=== PATIENT | female | born 1945 | race Caucasian/White ===

== ENCOUNTER 2022-01-29 16:19 | Emergency (ER) | payer MEDICARE ==
[~2022-01-29] VITALS: Ht 149.9 cm; Wt 84.0 kg
[2022-01-29] VITALS (22 sets, daily range): BP systolic 64–121; BP diastolic 36–75
[2022-01-29 16:47] LABS: HEMATOCRIT 40.3 % (37.0-47.0); HEMOGLOBIN 12.9 g/dl (12.0-16.0); IMMATURE GRANULOCYTES 0.6 % (0.0-5.0); MEAN CELL VOLUME 92.4 fL CALC (80.0-100.0); MEAN CORPUSCULAR HGB 29.6 pG CALC (26.0-32.0); NEUT# 14.73 thou/uL (2.00-7.15); RED BLOOD COUNT 4.36 mill/uL (4.20-5.60); RED CELL DISTRI WIDTH 14.2 % (11.5-15.5)
[2022-01-29 17:00] LABS: ALBUMIN 3.5 g/dL (3.2-5.0); BILIRUBIN, TOTAL 0.3 mg/dL (0.0-1.4); CREATININE 2.3 mg/dL (0.5-1.0); MAGNESIUM 2.8 mg/dL (1.6-2.3); TOTAL PROTEIN 6.3 g/dL (6.3-8.2)
[2022-01-29 17:04] LABS: POTASSIUM 5.3 mmol/l (3.5-5.1)
== END 2022-01-29 18:43 | disposition home or self-care (01) ==
LOC: ED 16:19
PROVIDERS: Internal Medicine
DX: I48.91 Unspecified atrial fibrillation (principal); R79.89 Other specified abnormal findings of blood chemistry; I95.9 Hypotension, unspecified

== ENCOUNTER 2022-06-17 16:35 | Emergency (ER) | payer MEDICARE ==
[2022-06-17] VITALS (24 sets, daily range): BP systolic 105–194; BP diastolic 49–87
[~2022-06-17] VITALS: Ht 149.9 cm; Wt 82.2 kg
[2022-06-17 17:36] LABS: HEMATOCRIT 44.7 % (37.0-47.0); IMMATURE GRANULOCYTES 0.5 % (0.0-5.0); MEAN CELL VOLUME 90.1 fL CALC (80.0-100.0); MEAN CORPUSCULAR HGB 30.6 pG CALC (26.0-32.0); NEUT# 9.85 thou/uL (2.00-7.15); RED BLOOD COUNT 4.96 mill/uL (4.20-5.60); RED CELL DISTRI WIDTH 12.9 % (11.5-15.5)
[2022-06-17 17:40] LABS: HEMOGLOBIN 15.2 g/dl (12.0-16.0)
[2022-06-17 17:56] LABS: CREATININE 2.9 mg/dL (0.5-1.0)
[2022-06-17 18:08] LABS: URINE BILIRUBIN - DIPSTICK NEGATIVE (NEGATIVE); URINE BLOOD DIPSTICK SMALL (NEGATIVE); URINE COLOR YELLOW; URINE GLUCOSE - DIPSTICK NEGATIVE (NEGATIVE); URINE KETONE TRACE mg/dL (NEGATIVE); URINE LEUK ESTERASE NEGATIVE (NEGATIVE); URINE PROTEIN - DIPSTICK NEGATIVE (NEG-TRACE); URINE SPECIFIC GRAVITY 1.025; URINE UROBILINOGEN - DIPSTICK 0.2 E.U./dL (0.2)
[2022-06-17 18:11] LABS: URINE NITRITE - DIPSTICK NEGATIVE (Negative); URINE SQUAMOUS EPITHELIAL CELL FEW EPI/hpf (0-FEW); URINE WBC 0-2 WBC/hpf (0-5)
[2022-06-17 18:16] LABS: ALBUMIN 4.7 g/dL (3.2-5.0); BILIRUBIN, TOTAL 0.8 mg/dL (0.0-1.4); TOTAL PROTEIN 8.8 g/dL (6.3-8.2)
[2022-06-18] VITALS: BP 124/62
== END 2022-06-18 00:02 | disposition short-term general hospital (02) ==
LOC: ED 16:35
PROVIDERS: Family Medicine
DX: I21.4 Non-ST elevation (NSTEMI) myocardial infarction (principal); E83.52 Hypercalcemia; R79.89 Other specified abnormal findings of blood chemistry; I10 Essential (primary) hypertension; I48.91 Unspecified atrial fibrillation; I25.10 Atherosclerotic heart disease of native coronary artery without angina pectoris; E11.9 Type 2 diabetes mellitus without complications; F03.90 Unspecified dementia, unspecified severity, without behavioral disturbance, psychotic disturbance, mood disturbance, and anxiety; Z20.822 Contact with and (suspected) exposure to COVID-19
CPT/HCPCS: J1644

== ENCOUNTER 2022-07-17 19:53 | Observation (INO) | payer MEDICARE ==
[~2022-07-17] VITALS: Ht 149.9 cm; Wt 82.5 kg
[2022-07-17] VITALS (8 sets, daily range): BP systolic 102–183; BP diastolic 50–88
[2022-07-17 20:51] LABS: BASO% 0.4 % (0-3); EOS% 3.2 % (0-8); HEMATOCRIT 41.1 % (37.0-47.0); HEMOGLOBIN 13.8 g/dl (12.0-16.0); IMMATURE GRANULOCYTES 0.3 % (0.0-5.0); MEAN CELL VOLUME 92.2 fL CALC (80.0-100.0); MEAN CORPUSCULAR HGB 30.9 pG CALC (26.0-32.0); MEAN CORPUSCULAR HGB CONC 33.6 g/dL CAL (32.0-36.0); NEUT# 3.45 thou/uL (2.00-7.15); NEUT% 46.1 % (42-76); RED BLOOD COUNT 4.46 mill/uL (4.20-5.60)
[2022-07-17 21:05] LABS: ALBUMIN 4.1 g/dL (3.2-5.0); BILIRUBIN, TOTAL 0.6 mg/dL (0.0-1.4); CREATININE 2.2 mg/dL (0.5-1.0); POTASSIUM 4.5 mmol/l (3.5-5.1); TOTAL PROTEIN 7.4 g/dL (6.3-8.2)
[2022-07-17 21:08] LABS: ACT PARTIAL THROMBO TIME 17.8 SECONDS (20.0-32.5); INTERNATIONAL NORMALIZED RATIO 1.1 RATIO (0.7-1.3); PROTHROMBIN TIME 11.3 SECONDS (9.0-12.5)
[2022-07-17 21:15] LABS: MAGNESIUM 1.4 mg/dL (1.6-2.3)
[2022-07-17 21:37] LABS: TSH, 3RD GENERATION 3.87 uIU/mL (0.47 - 4.68)
[2022-07-18] VITALS (13 sets, daily range): BP systolic 108–176; BP diastolic 40–80
[2022-07-18 02:52] LABS: URINE BILIRUBIN - DIPSTICK NEGATIVE (NEGATIVE); URINE BLOOD DIPSTICK NEGATIVE (NEGATIVE); URINE COLOR YELLOW; URINE GLUCOSE - DIPSTICK NEGATIVE (NEGATIVE); URINE KETONE NEGATIVE (NEGATIVE); URINE LEUK ESTERASE NEGATIVE (NEGATIVE); URINE PROTEIN - DIPSTICK NEGATIVE (NEG-TRACE); URINE SPECIFIC GRAVITY 1.015; URINE UROBILINOGEN - DIPSTICK 0.2 E.U./dL (0.2)
[2022-07-18 02:55] LABS: URINE NITRITE - DIPSTICK NEGATIVE (Negative)
[2022-07-18 07:06] LABS: ALBUMIN 3.6 g/dL (3.2-5.0); BILIRUBIN, TOTAL 0.6 mg/dL (0.0-1.4); CREATININE 2.3 mg/dL (0.5-1.0); POTASSIUM 4.8 mmol/l (3.5-5.1); TOTAL PROTEIN 6.4 g/dL (6.3-8.2)
[2022-07-19 05:02] VITALS: BP 162/63
[2022-07-19 06:15] VITALS: BP 144/71
[2022-07-19 10:47] VITALS: BP 152/78
[2022-07-19 14:23] LABS: BASO% 0.3 % (0-3); EOS% 3.9 % (0-8); IMMATURE GRANULOCYTES 0.3 % (0.0-5.0); LYMPH% 25.4 % (15-41); MEAN CORPUSCULAR HGB 31.2 pG CALC (26.0-32.0); MEAN CORPUSCULAR HGB CONC 33.5 g/dL CAL (32.0-36.0); MONO% 7.8 % (2-13); NEUT# 3.85 thou/uL (2.00-7.15); NEUT% 62.3 % (42-76); RED BLOOD COUNT 3.59 mill/uL (4.20-5.60); RED CELL DISTRI WIDTH 13.1 % (11.5-15.5)
[2022-07-19 14:25] VITALS: BP 144/59
[2022-07-19 14:25] LABS: HEMATOCRIT 33.4 % (37.0-47.0); HEMOGLOBIN 11.2 g/dl (12.0-16.0)
[2022-07-19 14:51] LABS: ALBUMIN 3.3 g/dL (3.2-5.0); BILIRUBIN, TOTAL 0.4 mg/dL (0.0-1.4); CREATININE 1.8 mg/dL (0.5-1.0); TOTAL PROTEIN 6.3 g/dL (6.3-8.2)
[2022-07-19 14:56] LABS: POTASSIUM 4.3 mmol/l (3.5-5.1)
[2022-07-19 19:47] VITALS: BP 154/68
[2022-07-20 00:41] VITALS: BP 157/64
[2022-07-20 06:05] LABS: BASO% 0.6 % (0-3); EOS% 7.1 % (0-8); HEMATOCRIT 32.3 % (37.0-47.0); HEMOGLOBIN 10.8 g/dl (12.0-16.0); IMMATURE GRANULOCYTES 0.4 % (0.0-5.0); LYMPH% 35.2 % (15-41); MEAN CELL VOLUME 92.8 fL CALC (80.0-100.0); MEAN CORPUSCULAR HGB CONC 33.4 g/dL CAL (32.0-36.0); MONO% 8.6 % (2-13); NEUT# 2.56 thou/uL (2.00-7.15); NEUT% 48.1 % (42-76); RED BLOOD COUNT 3.48 mill/uL (4.20-5.60)
[2022-07-20 06:44] VITALS: BP 150/78
[2022-07-20 06:49] LABS: BILIRUBIN, TOTAL 0.4 mg/dL (0.0-1.4); CREATININE 1.4 mg/dL (0.5-1.0); POTASSIUM 4.2 mmol/l (3.5-5.1); TOTAL PROTEIN 5.8 g/dL (6.3-8.2)
[2022-07-20 08:11] VITALS: BP 150/78
[2022-07-20] MEDS ORDERED: ALBUTERO2 IN (12:06)
[2022-07-20] MEDS ORDERED: NORVASC5 M1 PO (12:09)
[2022-07-20] MEDS ORDERED: SG ASA LOW81 M1 PO (12:11)
[2022-07-20] MEDS ORDERED: ATORVASTATIN CA40 MG PO (12:13)
[2022-07-20] MEDS ORDERED: CALCIUM600 M1 PO (12:14)
[2022-07-20] MEDS ORDERED: DOXAZOSIN8 M1 PO (12:17)
[2022-07-20] MEDS ORDERED: ELIQUIS5 MG PO (12:18)
[2022-07-20] MEDS ORDERED: EZETIMIBE10 MG PO (12:21)
[2022-07-20] MEDS ORDERED: FENOFIBRATE160 MG PO (12:22)
[2022-07-20] MEDS ORDERED: FIASP100 UNIT/M SC (12:25)
[2022-07-20] MEDS ORDERED: FISH OIL1200 M1 PO (12:28)
[2022-07-20] MEDS ORDERED: FLAX (12:29)
[2022-07-20] MEDS ORDERED: HYDROCHLOROT25 MG PO (12:35)
[2022-07-20] MEDS ORDERED: METFORMIN500 M2 PO (12:36)
[2022-07-20] MEDS ORDERED: METOPROL TAR100 MG PO (12:38)
[2022-07-20] MEDS ORDERED: NITROGLYCERIN0.4 MG SL (12:41)
[2022-07-20] MEDS ORDERED: NOVOLIN N100 UNIT SC (12:43)
[2022-07-20] MEDS ORDERED: OZEMPIC2 MG/1.5 M SC (12:46)
[2022-07-20] MEDS ORDERED: SPIRIVA RE1.25 MCG/A IN (12:48)
[2022-07-20] MEDS ORDERED: DIOVAN160 MG PO (12:49)
[2022-07-20] MEDS ORDERED: VITAMIN D32000 UNI2 PO (12:52)
[2022-07-20 18:21] VITALS: BP 174/72
[2022-07-21] VITALS (8 sets, daily range): BP systolic 142–178; BP diastolic 47–105
[2022-07-21 06:21] LABS: BASO% 0.4 % (0-3); HEMATOCRIT 32.1 % (37.0-47.0); IMMATURE GRANULOCYTES 0.4 % (0.0-5.0); LYMPH% 29.3 % (15-41); MEAN CORPUSCULAR HGB 31.5 pG CALC (26.0-32.0); MEAN CORPUSCULAR HGB CONC 34.3 g/dL CAL (32.0-36.0); MONO% 9.5 % (2-13); NEUT% 53.4 % (42-76); RED BLOOD COUNT 3.49 mill/uL (4.20-5.60)
[2022-07-21 06:45] LABS: CREATININE 1.2 mg/dL (0.5-1.0); POTASSIUM 3.9 mmol/l (3.5-5.1); TOTAL PROTEIN 5.8 g/dL (6.3-8.2)
[2022-07-21 07:01] LABS: BILIRUBIN, TOTAL 0.2 mg/dL (0.0-1.4)
[2022-07-22] VITALS (8 sets, daily range): BP systolic 136–189; BP diastolic 43–80
[2022-07-22 06:12] LABS: BASO% 0.5 % (0-3); EOS% 6.8 % (0-8); HEMATOCRIT 31.7 % (37.0-47.0); HEMOGLOBIN 10.9 g/dl (12.0-16.0); IMMATURE GRANULOCYTES 0.5 % (0.0-5.0); LYMPH% 33.1 % (15-41); MEAN CELL VOLUME 91.1 fL CALC (80.0-100.0); MEAN CORPUSCULAR HGB 31.3 pG CALC (26.0-32.0); MEAN CORPUSCULAR HGB CONC 34.4 g/dL CAL (32.0-36.0); MONO% 9.6 % (2-13); NEUT# 2.82 thou/uL (2.00-7.15); NEUT% 49.5 % (42-76); RED BLOOD COUNT 3.48 mill/uL (4.20-5.60)
[2022-07-22 06:43] LABS: ALBUMIN 3.2 g/dL (3.2-5.0); ALKALINE PHOSPHATASE 94 u/l (38-126); ANION GAP 8 (6-22 (CALC)); BILIRUBIN, TOTAL 0.2 mg/dL (0.0-1.4); BUN 21 mg/dL (8-23); BUN/CREATININE RATIO 21 (12-20 (CALC)); CARBON DIOXIDE 22 mmol/l (22-30); CHLORIDE 111 mmol/l (95-108); GFR FOR AFR.AMER. > 60 ML/MIN (>=60 (CALC)); GFR OTHER RACES 54 ML/MIN (>=60 (CALC)); POTASSIUM 3.8 mmol/l (3.5-5.1); SGOT/AST 36 u/l (9-36); SODIUM 137 mmol/l (137-146); TOTAL PROTEIN 6.1 g/dL (6.3-8.2)
[2022-07-23 06:22] VITALS: BP 174/72
[2022-07-23 06:40] VITALS: BP 174/72
[2022-07-23 07:19] LABS: BASO% 0.2 % (0-3); HEMATOCRIT 31.8 % (37.0-47.0); IMMATURE GRANULOCYTES 0.5 % (0.0-5.0); LYMPH% 27.6 % (15-41); MEAN CELL VOLUME 90.9 fL CALC (80.0-100.0); MEAN CORPUSCULAR HGB 31.4 pG CALC (26.0-32.0); MEAN CORPUSCULAR HGB CONC 34.6 g/dL CAL (32.0-36.0); MONO% 8.8 % (2-13); NEUT# 3.51 thou/uL (2.00-7.15); NEUT% 57.9 % (42-76); RED BLOOD COUNT 3.5 mill/uL (4.20-5.60); RED CELL DISTRI WIDTH 13.1 % (11.5-15.5)
[2022-07-23 08:35] LABS: ALBUMIN 3.1 g/dL (3.2-5.0); ALKALINE PHOSPHATASE 98 u/l (38-126); ANION GAP 8 (6-22 (CALC)); BILIRUBIN, TOTAL 0.2 mg/dL (0.0-1.4); BUN 14 mg/dL (8-23); BUN/CREATININE RATIO 16 (12-20 (CALC)); CARBON DIOXIDE 23 mmol/l (22-30); CHLORIDE 112 mmol/l (95-108); CREATININE 0.9 mg/dL (0.5-1.0); GFR FOR AFR.AMER. > 60 ML/MIN (>=60 (CALC)); GFR OTHER RACES > 60 ML/MIN (>=60 (CALC)); POTASSIUM 3.9 mmol/l (3.5-5.1); SGOT/AST 24 u/l (9-36); SODIUM 139 mmol/l (137-146); TOTAL PROTEIN 5.7 g/dL (6.3-8.2)
[2022-07-23 09:55] VITALS: BP 141/75
[2022-07-23 10:23] VITALS: BP 171/66
[2022-07-23 14:26] VITALS: BP 151/60
== END 2022-07-23 16:16 ==
LOC: ED 19:53 → MS2 07-18 01:29
PROVIDERS: Family Medicine; Nurse Practitioner Family; ADMIT Internal Medicine; ATTEND Internal Medicine
PROC: 0T9B70Z Drainage of Bladder with Drainage Device, Via Natural or Artificial Opening (ICD-10-PCS; principal; 2022-07-18)
DX: E83.52 Hypercalcemia (principal); E87.1 Hypo-osmolality and hyponatremia; B36.9 Superficial mycosis, unspecified; E87.20 Acidosis, unspecified; E86.9 Volume depletion, unspecified; E83.39 Other disorders of phosphorus metabolism; D64.9 Anemia, unspecified; I12.9 Hypertensive chronic kidney disease with stage 1 through stage 4 chronic kidney disease, or unspecified chronic kidney disease; E11.22 Type 2 diabetes mellitus with diabetic chronic kidney disease; N18.30 Chronic kidney disease, stage 3 unspecified; I48.91 Unspecified atrial fibrillation; I25.10 Atherosclerotic heart disease of native coronary artery without angina pectoris; F03.90 Unspecified dementia, unspecified severity, without behavioral disturbance, psychotic disturbance, mood disturbance, and anxiety; K59.00 Constipation, unspecified; Z95.5 Presence of coronary angioplasty implant and graft; Z95.0 Presence of cardiac pacemaker; Z90.49 Acquired absence of other specified parts of digestive tract; Z20.822 Contact with and (suspected) exposure to COVID-19
CPT/HCPCS: J1650; J3475